=== PATIENT | male | born 1940 | race Caucasian/White ===

== ENCOUNTER 2021-10-07 11:39 | Outpatient (CLI) | payer MEDICARE, BC ==
[2021-10-07 12:36] LABS: Hemoglobin 12.4 g/dL (13.5-17.5); Mean Corpuscular HGB CONC 32.2 g/dL (32.0-36.0); Mean Corpuscular Hemoglobin 28.6 pg (27.0-33.0); Mean Corpuscular Volume 88.9 fl (81.2-95.1); Mean Platelet Volume 9.7 fl (7.4-10.4); Platelet Count 174 10x3/uL (150-450); RBC Distribution Width 12.7 % (11.5-14.5); Red Blood Cell (RBC) Count 4.33 10x6/uL (4.32-5.72); White Blood Cell (WBC) Count 7.1 10x3/uL (3.5-10.5)
[2021-10-07 12:49] LABS: Anion Gap 12 mmol/L (10-20); BUN (Urea Nitrogen) 21 mg/dL (8.4-25.7); Calc. Creatinine Clearance 0 mL/min (70-130); Calcium 9.7 mg/dL (7.8-10.44); Carbon Dioxide 28 mmol/L (23-31); Chloride 105 mmol/L (98-107); Glucose 83 mg/dL (83-110); Potassium 4.2 mmol/L (3.5-5.1); Sodium 141 mmol/L (136-145)
[2021-10-07 20:50] LABS: SARS-CoV-2 PCR by NAA Not Detected (NotDetected)
== END 2021-10-07 11:40 | disposition home or self-care (01) ==
LOC: LABBT 11:39
PROVIDERS: ATTEND Neurological Surgery
DX: Z01.818 Encounter for other preprocedural examination (principal); M54.16 Radiculopathy, lumbar region; M48.061 Spinal stenosis, lumbar region without neurogenic claudication; Z20.822 Contact with and (suspected) exposure to COVID-19
CPT/HCPCS: 80048; 85027; 93005; U0003; U0005; 93010

== ENCOUNTER 2021-10-12 05:23 | Day surgery (SDC) | payer MEDICARE, BC ==
[2021-10-07 12:08] VITALS: BMI 26.9
[2021-10-12] MEDS ORDERED: ceFAZolin 2 GM/DEX 5% 100 ML BAG ONE (06:31)
[2021-10-12] MEDS ORDERED: EPINEPHrine 1 MG/ML AMP ONE (06:44)
[2021-10-12] MEDS ORDERED: Bupivacaine PF 0.5% 30 ML VIAL ONE (06:44)
[2021-10-12] MEDS ORDERED: Thrombin 5000 UNITS/5 ML VIAL ONE (06:44)
[2021-10-12] MEDS ORDERED: Fentanyl 250 MCG/5 ML VIAL ONE ×2 (06:50→09:00)
[2021-10-12] MEDS ORDERED: SUGAMMADEX SODIUM 200 MG/2 ML VIAL ONE (07:03)
[2021-10-12] MEDS ORDERED: Dexamethasone 20 MG/5 ML VIAL ONE (07:12)
[2021-10-12] MEDS ORDERED: Succinylcholine 200 MG/10 ml SYRINGE FS ONE (07:12)
[2021-10-12] MEDS ORDERED: Rocuronium Bromide 10 MG/ML (10ML VIAL) ONE (07:12)
[2021-10-12] MEDS ORDERED: PROPOFOL 200 MG/20 ML VIAL ONE (07:12)
[2021-10-12] MEDS ORDERED: ePHEDrine 50 MG/ML VIAL ONE (07:12)
[2021-10-12] MEDS ORDERED: Lidocaine 1% PF 5 ML VIAL ONE (07:12)
[2021-10-12] MEDS ORDERED: Ondansetron PF 4 MG/2 ML Vial ONE (07:12)
[2021-10-12] MEDS ORDERED: Tamsulosin HCl 0.4 MG CAP ONE (09:11)
[2021-10-12] MEDS ORDERED: HYDROcodone/Acetaminophen 5/325 mg Tablet ONE (10:55)
[2021-10-12] MEDS ORDERED: ceFAZolin Sodium (SDC) 2 GM/100 ML BAG ONE (11:51)
== END 2021-10-12 12:40 | disposition home or self-care (01) ==
LOC: SDC 05:23
PROVIDERS: ATTEND Neurological Surgery
PROC: 01NB0ZZ Release Lumbar Nerve, Open Approach (ICD-10-PCS; principal; 2021-10-12)
DX: M48.062 Spinal stenosis, lumbar region with neurogenic claudication (principal); M54.16 Radiculopathy, lumbar region; E78.5 Hyperlipidemia, unspecified; M19.90 Unspecified osteoarthritis, unspecified site; I11.9 Hypertensive heart disease without heart failure; G30.9 Alzheimer's disease, unspecified; F02.80 Dementia in other diseases classified elsewhere, unspecified severity, without behavioral disturbance, psychotic disturbance, mood disturbance, and anxiety; Z79.01 Long term (current) use of anticoagulants; Z79.82 Long term (current) use of aspirin; Z79.899 Other long term (current) drug therapy; Z95.1 Presence of aortocoronary bypass graft
CPT/HCPCS: 76000; J0171; J0690; J1100; J2405; J2704; J3010; J3490; S0020